=== PATIENT | male | born 1955 ===

== ENCOUNTER 2017-11-19 14:35 | Observation (INO) | payer MEDICARE ==
[2017-11-19] MEDS ORDERED: Dextrose 50% SYRINGE Inj (50 ml) ONE (14:39)
[2017-11-19] MEDS ORDERED: Dextrose 50% SYRINGE Inj (50 ml) IVP ONE ×2 (14:40)
[2017-11-19] MEDS ORDERED: Glucagon Recombinant 1 mg Inj ONE ×2 (14:40→17:22)
[2017-11-19 15:30] LABS: BASO % 0.5 % (0.0-2.0); EOS # 0.3 K/uL (0.0-0.7); HEMOGLOBIN 10.1 g/dL (12.0-18.0); LYMPH # 0.5 K/uL (1.0-4.3); LYMPH % 5.3 % (20.0-40.0); MEAN CELL VOLUME 92.2 fl (80.0-94.0); MEAN CORPUSCULAR HEMOGLOBIN 31.4 pg (27.0-31.0); MEAN PLATELET VOLUME 7.7 fl (7.2-11.7); MONO # 0.5 K/uL (0.0-0.8); MONO % 5.5 % (0.0-10.0); NEUT % 85.7 % (50.0-75.0); PLATELET COUNT 224 K/uL (130-400); RBC 3.22 Mil/uL (4.40-5.90); RED CELL DISTRIBUTION WIDTH 13.5 % (11.5-14.5); WHITE BLOOD COUNT 9.4 K/uL (4.8-10.8)
[2017-11-19 15:32] LABS: VENOUS BLOOD GAS PCO2 45 mmHg (40-60); VENOUS BLOOD GAS PO2 34 mm/Hg (30-55); VENOUS BLOOD PH 7.29 (7.32-7.43)
--- NOTE | 2017-11-19 15:50 | ED PDOC ---
HPI: Altered Mental Status Time Seen by Provider: 11/19/17 14:37 Chief Complaint (Nursing): Altered Mental Status Chief Complaint (Provider): Hypoglycemia History Per: EMS History/Exam Limitations: Clinical Condition Onset/Duration Of Symptoms: Unknown Onset Of Symptoms: Cannot Confirm Onset Additional Complaint(s): 61yo male, brought to ER by EMS for evaluation of altered mental status and possible seizure. Per EMS, patient was found altered on field and per their report, EMS was called by the patient's neighbor who reportedly witnessed a seizure and that the patient was post-ictal. Patient did not have an accucheck in the field and in ER, accucheck noted to be 20. A full HPI and ROS is limited due to patient's clinical condition. Past Medical History Reviewed: Historical Data, Nursing Documentation, Vital Signs Vital Signs: Last Vital Signs Temp 97.9 F 11/19/17 14:45 Pulse 74 11/19/17 15:07 Resp 17 11/19/17 15:07 BP 142/74 11/19/17 15:07 Pulse Ox 100 11/19/17 15:07 - Medical History PMH: Diabetes, HTN, Seizures - Surgical History Surgical History: No Surg Hx - Family History Family History: States: No Known Family Hx - Home Medications Home Medications: Ambulatory Orders Medication Instructions Recorded Aspirin [Ecotrin] 81 mg PO DAILY #30 tabec 11/20/17 Atorvastatin [Lipitor] 10 mg PO HS #30 tab 11/20/17 Carvedilol [Coreg] 25 mg PO Q12 #30 tab 11/20/17 Finasteride [Proscar] 5 mg PO DAILY #30 tab 11/20/17 Furosemide [Lasix] 20 mg PO DAILY #30 tab 11/20/17 Sodium Bicarbonate Tab 1,300 mg PO BID #120 tab 11/20/17 Tamsulosin [Flomax] 0.4 mg PO HS #30 cap 11/20/17 amLODIPine [Norvasc] 10 mg PO DAILY #30 tab 11/20/17 - Allergies Allergies/Adverse Reactions: Allergies Allergy/AdvReac Type Severity Reaction Status Date / Time Unobtainable Allergy Verified 11/19/17 14:37 Review of Systems Review Of Systems: ROS cannot be obtained secondary to pt's inabilty to answer questions. Physical Exam - Reviewed Nursing Documentation Reviewed: Yes - Physical Exam Appears: Positive for: No Acute Distress Head Exam: Positive for: ATRAUMATIC, NORMAL INSPECTION, NORMOCEPHALIC Skin: Positive for: Diaphoresis Eye Exam: Positive for: PERRL Neck: Positive for: Normal, Supple Cardiovascular/Chest: Positive for: Regular Rate, Rhythm, Bradycardia Respiratory: Positive for: Normal Breath Sounds. Negative for: Respiratory Distress Pulses-Dorsalis Pedis (L): 2+ Pulses-Dorsalis Pedis (R): 2+ Pulses-Radial (L): 2+ Pulses-Radial (R): 2+ Gastrointestinal/Abdominal: Positive for: Normal Exam, Soft, Other (obese abdomen). Negative for: Tenderness Back: Positive for: Normal Inspection Extremity: Positive for: Normal ROM Neurologic/Psych: Positive for: Other (obtunded; snoring). Negative for: Alert , Oriented - Laboratory Results Result Diagrams: 11/19/17 15:23 11/19/17 15:23 - ECG O2 Sat by Pulse Oximetry: 100 (RA) Pulse Ox Interpretation: Normal - Progress Re-evaluation Time: 16:30 Condition: Re-examined, Improving,but remains with symptoms - Critical Care Total Time (In Min): 30 Medical Decision Making Medical Decision Making: Impression: Hypoglycemic with seizures Differential: Hypoglycemia due to diabetes medication, other etiology considered. Seizure due to recurrent seizure. Plan: * Labs * UDip * IV Dextrose 50ml * CT head * Patient's pharmaceutical records reviewed, patient is currently on glimepiride Scribe Attestation: Documented by Paula Ling, acting as a scribe for Lacho Sheehan MD. Provider Scribe Attestation: All medical record entries made by the Scribe were at my direction and personally dictated by me. I have reviewed the chart and agree that the record accurately reflects my personal performance of the history, physical exam, medical decision making, and the department course for this patient. I have also personally directed, reviewed, and agree with the discharge instructions and disposition. Disposition - Clinical Impression Clinical Impression: Altered mental status, Hypoglycemia, Seizure - Patient ED Disposition Is Patient to be Admitted: Yes Discussed With : Dorian Molina Doctor Will See Patient In The: ED Counseled Patient/Family Regarding: Studies Performed, Diagnosis - Disposition Disposition Time: 17:00 Condition: FAIR - Pt Status Changed To: Hospital Disposition Of: Observation - POA Present On Arrival: None
[2017-11-19 15:51] LABS: ALB/GLOB RATIO 1.2 (1.0-2.1); ALT/SGPT 18 U/L (21-72); AST/SGOT 15 U/L (17-59); BLOOD UREA NITROGEN 51 mg/dl (9-20); CALCIUM 8.6 mg/dL (8.4-10.2); GFR NON-AFRICAN AMERICAN 13
[2017-11-19] MEDS ORDERED: Sodium Chloride 0.9% 1,000 ML IV STA (16:13)
[2017-11-19] MEDS ORDERED: Glucagon Recombinant 1 mg Inj IM ONE (17:13)
[2017-11-19 17:14] LABS: ANISOCYTOSIS MODERATE; BANDS 2 % (0-2); EOSINOPHIL 3 % (0-7); HYPERSEGMENTATION PRESENT; LYMPHOCYTE 8 % (20-50); MONOCYTE 6 % (0-10); NEUTROPHIL 81 % (42-75); PLATELET ESTIMATE NORMAL (NORMAL); TOTAL CELLS COUNTED 100
[2017-11-19] MEDS ORDERED: Dextrose 5%/0.45% NS 1,000 ML IV SCH ×2 (17:30→17:55)
--- NOTE | 2017-11-19 17:42 | CP.PCM.HP ---
<Anastacia Bernard - Last Filed: 11/19/17 18:16> History of Present Illness - History of Present Illness History of Present Illness: 61-year-old male with hx of CHF, HTN, CKD (end-stage, refusing dialysis), and DM seen bedside in the ED. His found him unresponsive at home and he was brought in by ambulance. Blood glucose upon arrival was 20mg/dl and he received 2 Ampsof D50 (50g); no glucose check was done in the field as cruller maker thought he was having a seizure. Status-post 2 vials of D5W he was able to be aroused and returned to baseline (baseline as per ED physician who is familiar with the patient). His blood glucose rechecks were 200g/dl and 80g/dl. He admits to being off of his medication for 2 weeks and not consuming any food for the last two days as he was not feeling well. He denies tingling, numbness, headache, dizziness, chest pain, shortness of breath, constipation and diarrhea. Patient is a poor historian and difficult to understand, likely secondary to CVA x3 (first in 1979). He is alert and oriented to self and time, but not place. PMD: Dr Hargrove PMH: CHF diastolic dysfunction; (ECHO 10/2017 EF 55-60%, mild/moderate concentric LV hypertrophy, LA is moderate to severely dilated ); CVA (x3) first 1979; DM II; HTN, Kidney Stones, CKD (end-stage, refusing dialysis); A Fib PSH: No surgery noted in records SH: former Smoker quit 25 years ago; No illegal substance use; Uses a walker to ambulate; Admits to alcohol consumption of beer, 1 pack (6 servings of beer)/ day - last alcohol consumption was 3 weeks ago FH: Unknown family Hx Allergy: NKDA Present on Admission - Present on Admission Any Indicators Present on Admission: No History of DVT/PE: No History of Uncontrolled Diabetes: Yes Urinary Catheter: No Decubitus Ulcer Present: No Review of Systems - Review of Systems All systems: reviewed and no additional remarkable complaints except (as per HPI ) Past Patient History - Past Social History Smoking Status: Never Smoked - CARDIAC Hx Hypertension: Yes - NEUROLOGICAL Hx Seizures: Yes - PSYCHIATRIC Hx Substance Use: No - SURGICAL HISTORY Hx Surgeries: No - ANESTHESIA Hx Anesthesia: No Meds Allergies/Adverse Reactions: Allergies Allergy/AdvReac Type Severity Reaction Status Date / Time Unobtainable Allergy Verified 11/19/17 14:37 Physical Exam - Constitutional Appears: Non-toxic - Head Exam Head Exam: ATRAUMATIC - Eye Exam Eye Exam: PERRL - ENT Exam ENT Exam: Mucous Membranes Dry - Neck Exam Neck exam: Positive for: Full Rom - Respiratory Exam Respiratory Exam: NORMAL BREATHING PATTERN - Cardiovascular Exam Cardiovascular Exam: REGULAR RHYTHM - Extremities Exam Additional comments: +1 pitting edema bilateral - Neurological Exam Neurological exam: Alert Additional comments: Oriented to time and self Results - Vital Signs Recent Vital Signs: Last Vital Signs Temp 97.9 F 11/19/17 14:45 Pulse 74 11/19/17 15:07 Resp 17 11/19/17 15:07 BP 142/74 11/19/17 15:07 Pulse Ox 100 11/19/17 15:55 - Labs Result Diagrams: 11/19/17 15:23 11/19/17 15:23 Labs: Laboratory Results - last 24 hr 11/19/17 11/19/17 11/19/17 14:31 15:06 15:23 WBC RBC Hgb Hct MCV MCH MCHC RDW Plt Count MPV Neut % (Auto) Lymph % (Auto) [place] % (Auto) Eos % (Auto) Baso % (Auto) Neut # (Auto) Lymph # (Auto) [place] # (Auto) Eos # (Auto) Baso # (Auto) Neutrophils % (Manual) Band Neutrophils % Lymphocytes % (Manual) Monocytes % (Manual) Eosinophils % (Manual) Hypersegmented Polys Platelet Estimate Anisocytosis (manual) Macrocytosis (manual) pO2 VBG pH VBG pCO2 VBG HCO3 VBG Total CO2 VBG O2 Sat (Calc) VBG Base Excess VBG Potassium Glucose Lactate FiO2 Sodium 139 Potassium 3.3 L Chloride 105 Carbon Dioxide 23 Anion Gap 14 BUN 51 H Creatinine 4.7 H Est GFR ( Amer) 15 Est GFR (Non-Af Amer) 13 POC Glucose (mg/dL) < 20 L* 197 H Random Glucose 232 H Calcium 8.6 Total Bilirubin 0.4 AST 15 L ALT 18 L Alkaline Phosphatase 91 Ammonia Total Protein 7.2 Albumin 4.0 Globulin 3.3 Albumin/Globulin Ratio 1.2 Venous Blood Potassium Alcohol, Quantitative < 10 11/19/17 11/19/17 11/19/17 15:23 15:23 15:29 WBC 9.4 RBC 3.22 L Hgb 10.1 L Hct 29.7 L MCV 92.2 MCH 31.4 H MCHC 34.0 RDW 13.5 Plt Count 224 MPV 7.7 Neut % (Auto) 85.7 H Lymph % (Auto) 5.3 L [place] % (Auto) 5.5 Eos % (Auto) 3.0 Baso % (Auto) 0.5 Neut # (Auto) 8.0 H Lymph # (Auto) 0.5 L [place] # (Auto) 0.5 Eos # (Auto) 0.3 Baso # (Auto) 0.0 Neutrophils % (Manual) 81 H Band Neutrophils % 2 Lymphocytes % (Manual) 8 L Monocytes % (Manual) 6 Eosinophils % (Manual) 3 Hypersegmented Polys Present Platelet Estimate Normal Anisocytosis (manual) Moderate Macrocytosis (manual) Slight pO2 34 VBG pH 7.29 L VBG pCO2 45 VBG HCO3 19.9 VBG Total CO2 23.0 VBG O2 Sat (Calc) 71.0 H VBG Base Excess -5.0 L VBG Potassium 3.0 L Glucose 213 H Lactate 0.7 FiO2 21.0 Sodium 135.0 Potassium Chloride 103.0 Carbon Dioxide Anion Gap BUN Creatinine Est GFR ( Amer) Est GFR (Non-Af Amer) POC Glucose (mg/dL) Random Glucose Calcium Total Bilirubin AST ALT Alkaline Phosphatase Ammonia 11 L Total Protein Albumin Globulin Albumin/Globulin Ratio Venous Blood Potassium 3.0 L Alcohol, Quantitative 11/19/17 17:13 WBC RBC Hgb Hct MCV MCH MCHC RDW Plt Count MPV Neut % (Auto) Lymph % (Auto) [place] % (Auto) Eos % (Auto) Baso % (Auto) Neut # (Auto) Lymph # (Auto) [place] # (Auto) Eos # (Auto) Baso # (Auto) Neutrophils % (Manual) Band Neutrophils % Lymphocytes % (Manual) Monocytes % (Manual) Eosinophils % (Manual) Hypersegmented Polys Platelet Estimate Anisocytosis (manual) Macrocytosis (manual) pO2 VBG pH VBG pCO2 VBG HCO3 VBG Total CO2 VBG O2 Sat (Calc) VBG Base Excess VBG Potassium Glucose Lactate FiO2 Sodium Potassium Chloride Carbon Dioxide Anion Gap BUN Creatinine Est GFR ( Amer) Est GFR (Non-Af Amer) POC Glucose (mg/dL) 84 Random Glucose Calcium Total Bilirubin AST ALT Alkaline Phosphatase Ammonia Total Protein Albumin Globulin Albumin/Globulin Ratio Venous Blood Potassium Alcohol, Quantitative Assessment & Plan - Assessment and Plan (Free Text) Assessment: Syncope -Likely secondary to hypoglycemia (Accucheck 20) -Admit to Tele -IVF: D5 0.5 NS + 20 meq K -CT w/out contrast Hypoglycemia -Accucheck Q4H (20 n@ arrival, 200, 80) -Hold Lispro unless glucose greater than 300 -Consult endocrinology Dr. Camarean Diabetes Type II -Patient off meds 2 weeks, poor historian CKD -End-stage, patient refuse Dialysis in the past -Consult nephrology -Gentle IV fluid re-hydration Hypokalemia -Likely secondary to poor intake -To be replaced (IVF) -Follow electrolytes DVT Prophylaxis -Heparin 5000 units Q8 <Dorian Molina D - Last Filed: 11/20/17 09:44> Results - Vital Signs Recent Vital Signs: Last Vital Signs Temp 98 F 11/20/17 08:14 Pulse 62 11/20/17 08:56 Resp 20 11/20/17 08:14 BP 164/78 H 11/20/17 08:56 Pulse Ox 98 11/20/17 08:14 - Labs Result Diagrams: 11/19/17 15:23 11/19/17 15:23 Labs: Laboratory Results - last 24 hr 11/19/17 11/19/17 11/19/17 14:31 15:06 15:23 WBC RBC Hgb Hct MCV MCH MCHC RDW Plt Count MPV Neut % (Auto) Lymph % (Auto) [place] % (Auto) Eos % (Auto) Baso % (Auto) Neut # (Auto) Lymph # (Auto) [place] # (Auto) Eos # (Auto) Baso # (Auto) Neutrophils % (Manual) Band Neutrophils % Lymphocytes % (Manual) Monocytes % (Manual) Eosinophils % (Manual) Hypersegmented Polys Platelet Estimate Anisocytosis (manual) Macrocytosis (manual) pO2 VBG pH VBG pCO2 VBG HCO3 VBG Total CO2 VBG O2 Sat (Calc) VBG Base Excess VBG Potassium Glucose Lactate FiO2 Sodium 139 Potassium 3.3 L Chloride 105 Carbon Dioxide 23 Anion Gap 14 BUN 51 H Creatinine 4.7 H Est GFR ( Amer) 15 Est GFR (Non-Af Amer) 13 POC Glucose (mg/dL) < 20 L* 197 H Random Glucose 232 H Calcium 8.6 Total Bilirubin 0.4 AST 15 L ALT 18 L Alkaline Phosphatase 91 Ammonia Troponin I Total Protein 7.2 Albumin 4.0 Globulin 3.3 Albumin/Globulin Ratio 1.2 Venous Blood Potassium Urine Opiates Screen Urine Methadone Screen Ur Barbiturates Screen Ur Phencyclidine Scrn Ur Amphetamines Screen U Benzodiazepines Scrn U Oth Cocaine Metabols U Cannabinoids Screen Alcohol, Quantitative < 10 11/19/17 11/19/17 11/19/17 15:23 15:23 15:29 WBC 9.4 RBC 3.22 L Hgb 10.1 L Hct 29.7 L MCV 92.2 MCH 31.4 H MCHC 34.0 RDW 13.5 Plt Count 224 MPV 7.7 Neut % (Auto) 85.7 H Lymph % (Auto) 5.3 L [place] % (Auto) 5.5 Eos % (Auto) 3.0 Baso % (Auto) 0.5 Neut # (Auto) 8.0 H Lymph # (Auto) 0.5 L [place] # (Auto) 0.5 Eos # (Auto) 0.3 Baso # (Auto) 0.0 Neutrophils % (Manual) 81 H Band Neutrophils % 2 Lymphocytes % (Manual) 8 L Monocytes % (Manual) 6 Eosinophils % (Manual) 3 Hypersegmented Polys Present Platelet Estimate Normal Anisocytosis (manual) Moderate Macrocytosis (manual) Slight pO2 34 VBG pH 7.29 L VBG pCO2 45 VBG HCO3 19.9 VBG Total CO2 23.0 VBG O2 Sat (Calc) 71.0 H VBG Base Excess -5.0 L VBG Potassium 3.0 L Glucose 213 H Lactate 0.7 FiO2 21.0 Sodium 135.0 Potassium Chloride 103.0 Carbon Dioxide Anion Gap BUN Creatinine Est GFR ( Amer) Est GFR (Non-Af Amer) POC Glucose (mg/dL) Random Glucose Calcium Total Bilirubin AST ALT Alkaline Phosphatase Ammonia 11 L Troponin I Total Protein Albumin Globulin Albumin/Globulin Ratio Venous Blood Potassium 3.0 L Urine Opiates Screen Urine Methadone Screen Ur Barbiturates Screen Ur Phencyclidine Scrn Ur Amphetamines Screen U Benzodiazepines Scrn U Oth Cocaine Metabols U Cannabinoids Screen Alcohol, Quantitative 11/19/17 11/19/17 11/19/17 17:13 20:00 20:05 WBC RBC Hgb Hct MCV MCH MCHC RDW Plt Count MPV Neut % (Auto) Lymph % (Auto) [place] % (Auto) Eos % (Auto) Baso % (Auto) Neut # (Auto) Lymph # (Auto) [place] # (Auto) Eos # (Auto) Baso # (Auto) Neutrophils % (Manual) Band Neutrophils % Lymphocytes % (Manual) Monocytes % (Manual) Eosinophils % (Manual) Hypersegmented Polys Platelet Estimate Anisocytosis (manual) Macrocytosis (manual) pO2 VBG pH VBG pCO2 VBG HCO3 VBG Total CO2 VBG O2 Sat (Calc) VBG Base Excess VBG Potassium Glucose Lactate FiO2 Sodium Potassium Chloride Carbon Dioxide Anion Gap BUN Creatinine Est GFR ( Amer) Est GFR (Non-Af Amer) POC Glucose (mg/dL) 84 96 Random Glucose Calcium Total Bilirubin AST ALT Alkaline Phosphatase Ammonia Troponin I 0.0360 Total Protein Albumin Globulin Albumin/Globulin Ratio Venous Blood Potassium Urine Opiates Screen Urine Methadone Screen Ur Barbiturates Screen Ur Phencyclidine Scrn Ur Amphetamines Screen U Benzodiazepines Scrn U Oth Cocaine Metabols U Cannabinoids Screen Alcohol, Quantitative 11/19/17 11/20/17 11/20/17 20:47 03:15 04:40 WBC RBC Hgb Hct MCV MCH MCHC RDW Plt Count MPV Neut % (Auto) Lymph % (Auto) [place] % (Auto) Eos % (Auto) Baso % (Auto) Neut # (Auto) Lymph # (Auto) [place] # (Auto) Eos # (Auto) Baso # (Auto) Neutrophils % (Manual) Band Neutrophils % Lymphocytes % (Manual) Monocytes % (Manual) Eosinophils % (Manual) Hypersegmented Polys Platelet Estimate Anisocytosis (manual) Macrocytosis (manual) pO2 VBG pH VBG pCO2 VBG HCO3 VBG Total CO2 VBG O2 Sat (Calc) VBG Base Excess VBG Potassium Glucose Lactate FiO2 Sodium Potassium Chloride Carbon Dioxide Anion Gap BUN Creatinine Est GFR ( Amer) Est GFR (Non-Af Amer) POC Glucose (mg/dL) 96 65 Random Glucose Calcium Total Bilirubin AST ALT Alkaline Phosphatase Ammonia Troponin I Total Protein Albumin Globulin Albumin/Globulin Ratio Venous Blood Potassium Urine Opiates Screen Negative Urine Methadone Screen Negative Ur Barbiturates Screen Negative Ur Phencyclidine Scrn Negative Ur Amphetamines Screen Negative U Benzodiazepines Scrn Negative U Oth Cocaine Metabols Negative U Cannabinoids Screen Negative Alcohol, Quantitative 11/20/17 05:18 WBC RBC Hgb Hct MCV MCH MCHC RDW Plt Count MPV Neut % (Auto) Lymph % (Auto) [place] % (Auto) Eos % (Auto) Baso % (Auto) Neut # (Auto) Lymph # (Auto) [place] # (Auto) Eos # (Auto) Baso # (Auto) Neutrophils % (Manual) Band Neutrophils % Lymphocytes % (Manual) Monocytes % (Manual) Eosinophils % (Manual) Hypersegmented Polys Platelet Estimate Anisocytosis (manual) Macrocytosis (manual) pO2 VBG pH VBG pCO2 VBG HCO3 VBG Total CO2 VBG O2 Sat (Calc) VBG Base Excess VBG Potassium Glucose Lactate FiO2 Sodium Potassium Chloride Carbon Dioxide Anion Gap BUN Creatinine Est GFR ( Amer) Est GFR (Non-Af Amer) POC Glucose (mg/dL) 122 H Random Glucose Calcium Total Bilirubin AST ALT Alkaline Phosphatase Ammonia Troponin I Total Protein Albumin Globulin Albumin/Globulin Ratio Venous Blood Potassium Urine Opiates Screen Urine Methadone Screen Ur Barbiturates Screen Ur Phencyclidine Scrn Ur Amphetamines Screen U Benzodiazepines Scrn U Oth Cocaine Metabols U Cannabinoids Screen Alcohol, Quantitative Attending/Attestation - Attestation I have personally seen and examined this patient.: Yes I have fully participated in the care of the patient.: Yes I have reviewed all pertinent clinical information: Yes
[2017-11-19] MEDS ORDERED: Dextrose 50% SYRINGE Inj (50 ml) IV PRN (17:51)
[2017-11-19] MEDS ORDERED: Glucagon Recombinant 1 mg Inj IM PRN (17:51)
--- NOTE | 2017-11-19 18:22 | CT ---
Date of service: 11/19/2017 PROCEDURE: CT HEAD WITHOUT CONTRAST. HISTORY: AMS COMPARISON: None available. TECHNIQUE: Axial computed tomography images were obtained through the head/brain without intravenous contrast. Coronal and sagittal reconstructed images. Radiation dose: Total exam DLP = 1013.95 mGy-cm. This CT exam was performed using one or more of the following dose reduction techniques: Automated exposure control, adjustment of the mA and/or kV according to patient size, and/or use of iterative reconstruction technique. FINDINGS: HEMORRHAGE: No intracranial hemorrhage. BRAIN: No mass effect or edema. Evidence of cortical atrophy and microvascular disease. Evidence of encephalomalacia change left frontal parietal region. VENTRICLES: Unremarkable. No hydrocephalus. CALVARIUM: Unremarkable. PARANASAL SINUSES: Unremarkable as visualized. No significant inflammatory changes. MASTOID AIR CELLS: Unremarkable as visualized. No inflammatory changes. OTHER FINDINGS: Evidence of old nasal bone fractures. Scalp laceration or scar left frontal region without adjacent calvarial or underlying intracranial abnormality. IMPRESSION: No acute intracranial abnormalities. No significant findings to account for the clinical presentation. Additional benign and/or incidental findings described above.
[2017-11-19] MEDS: Potassium Ch 20mEq in D5-1/2NS 1,000 ML IV SCH (20:56)
[2017-11-19] MEDS ORDERED: Insulin Lispro (humaLOG) 100 Units/ml Inj SC SCH (22:00)
[2017-11-19] MEDS: Insulin Lispro (humaLOG) 100 Units/ml Inj SC SCH (22:17)
[2017-11-20 04:45] LABS: BARBITURATES, UR NEGATIVE (NEGATIVE); BENZODIAZEPINES, UR NEGATIVE (NEGATIVE); OPIATES, UR NEGATIVE (NEGATIVE); PHENCYCLIDINE, UR NEGATIVE (NEGATIVE)
[2017-11-20] MEDS: Insulin Lispro (humaLOG) 100 Units/ml Inj SC SCH ×2 (06:39→15:05)
[2017-11-20] MEDS: Potassium Ch 20mEq in D5-1/2NS 1,000 ML IV SCH (06:40)
--- NOTE | 2017-11-20 07:47 | CARD ---
APPROVED REPORT Date of service: 11/19/2017 EKG Measurement Heart [id number] <Conclusion> Normal sinus rhythm Left ventricular hypertrophy with QRS widening and repolarization abnormality Abnormal ECG
[2017-11-20] MEDS ORDERED: Insulin Lispro (humaLOG) 100 Units/ml Inj SC SCH (09:00)
--- NOTE | 2017-11-20 09:53 | CON ---
DATE: 11/19/2017 LOCATION: Room 408 SUBJECTIVE: This is a 61-year-old male with known history of type 2 diabetes and end-stage renal disease, presenting here with sudden onset of confusion and apparent weakness, seizure, with an initial glucose of less than 20 done on arrival in the emergency room and is now being referred for diabetic evaluation and management. PAST MEDICAL HISTORY: As mentioned above, history of type 2 diabetes, currently on Amaryl given as 2 mg once daily, history of hypertensive cardiovascular disease and dyslipidemia, history of diabetic retinopathy, polyneuropathy, and advanced nephropathy with end-stage renal disease, but apparently has been refusing hemodialysis at this time. History of coronary artery disease and previous admissions for congestive heart failure. History of cerebrovascular disease, having had three previous strokes before with residual lower extremity weakness and uses a cane for ambulation. History of nephrolithiasis with no recent stone passage. History of cardiac tachyarrhythmias and chronic atrial fibrillation and is not on any kind of oral anticoagulation therapy at this time. FAMILY HISTORY: Positive for diabetes, hypertension. SOCIAL HISTORY: The patient admits to chronic alcoholism and consumes a pack of beer every few days as per the family. He is a previous former smoker and quit over 20 years ago. REVIEW OF SYSTEMS: As mentioned above, admits to generalized body weakness with progressive bouts of dizziness and lightheadedness, worse on the day of admission with apparent witnessed generalized seizures as noted. Also admits to insomnia and disrupted sleep patterns. Also admits to generalized body weakness with increasing bouts of hypersomnolence and lethargy, worse in the last few weeks prior to admission as per the family. No chest pains or palpitations or PND, but has been shown to have progressive shortness of breath initially on exertion and then at rest. His oral intake has been extremely poor and variable with suboptimal meal portions in the last 2 weeks and has been taking his Amaryl medications as noted with no recent home glucose monitoring undertaken. Also admits to nausea, dyspepsia, and vague upper abdominal pains with habitual constipation. PHYSICAL EXAMINATION: GENERAL: This is an obese male in no apparent distress. VITAL SIGNS: With a blood pressure of 150/84, pulse of 100 beats per minute and regular, temperature 98, respirations 20, height is 5 feet 4 inches, weight is 250 pounds. HEENT: Head normocephalic. Eyes, anicteric with pale conjunctivae. Funduscopy not possible at this time. Ears, nose, and throat otherwise normal. NECK: Supple. Thyroid gland is normal in size. No carotid bruits or any cervical adenopathy. CARDIOPULMONARY: Some adynamic precordium. S1, S2 are rapid and regular. LUNGS: Clear to auscultation. ABDOMEN: Flat, soft with positive bowel sounds. EXTREMITIES: There is +1 bipedal edema. Pulses are diminished peripherally. LABORATORY DATA: His initial chemistries showed a BUN of 51, sodium 139, potassium 3.3, chloride 105, CO2 of 23, glucose 232, and creatinine is 4.7. This was done after D50 bolus injections given initially in the emergency room with an initial fingerstick glucose of less than 20 mg/dL. ASSESSMENT: This is a 61-year-old male with uncontrolled and decompensated type 2 diabetes, presenting here with symptomatic hypoglycemia and associated neuroglycopenic and hyperadrenergic manifestations of the same with an apparent witnessed seizure which could also be metabolic in nature from the underlying marked hypoglycemia as mentioned thereof. He also has diabetic microvascular complications of retinopathy, polyneuropathy, and advanced nephropathy with marked azotemia and end-stage renal disease and has been refusing dialysis at this time. He also has diabetic macrovascular complications of cerebrovascular disease with coronary artery disease and most likely also has peripheral arterial disease and vasculopathy. PLAN OF MANAGEMENT: We will concur with the low-dose coverage scale as ordered, but we will still modify the low-dose correction scale for Humalog insulin to be given only for glucose above 300 mg/dL. We will observe his glycemic fluctuations overnight and determine the need to restart him on very low-dose, short-acting oral hypoglycemic therapy such as Prandin, especially beneficial in patients with end-stage renal disease because of the very short half life of this medication. We will obtain a hemoglobin A1c to confirm his prior glycemic control and baseline thyroid function studies will be ordered. A PTH level will be obtained to screen for secondary hyperparathyroidism as noted. We will repeat the chemistries and supplement accordingly as needed. We will follow. Kylah Camarena MD
--- NOTE | 2017-11-20 10:10 | PQF ---
PROVIDER RESPONSE TEXT: Patient is morbidly obese since his BMI is over 40 REVIEWER QUERY TEXT: Documentation Clarification Your help is requested in clarifying the following clinical documentation, if you can please further specify in the medical record and discharge summary. Please clarify if there is an associated diagnosis or not to go along with the BMI listed in the EMR. Please document the BMI as well in your progress note. The patient's Clinical Indicators include: EMR has the following documentation: 5' 4", 250 pounds with a BMI of 42.9. Query created by: Hyun Mederos on 11/20/2017 8:09 AM Electronically signed by: Dorian Molina MD 11/20/2017 10:07 AM
--- NOTE | 2017-11-20 10:20 | CP.PCM.CON ---
History of Present Illness - History of Present Illness History of Present Illness: this patient whole is 61 years of age male was admitted with severe hypoglycemia. And patient have chronic kidney disease for which I was called to see him for further evaluation. Patient stated that he has no knowledge of chronic kidney disease or any kidney problem to the best of his knowledge yet he is very poor historian Patient apparently has history of chronic kidney disease and he was a Saad for dialysis and he has refused. PMD: Dr Hargrove PMH: CHF diastolic dysfunction; (ECHO 10/2017 EF 55-60%, mild/moderate concentric LV hypertrophy, LA is moderate to severely dilated ); CVA (x3) first 1979; DM II; HTN, Kidney Stones, CKD (end-stage, refusing dialysis); A Fib PSH: No surgery noted in records SH: former Smoker quit 25 years ago; No illegal substance use; Uses a walker to ambulate; Admits to alcohol consumption of beer, 1 pack (6 servings of beer)/ day - last alcohol consumption was 3 weeks ago FH: Unknown family Hx Review of Systems - Constitutional Constitutional: Anorexia. absent: Chills - EENT Eyes: As Per HPI Nose/Mouth/Throat: absent: Nasal Congestion, Nasal Discharge - Cardiovascular Cardiovascular: absent: Chest Pain, Edema - Respiratory Respiratory: absent: Cough, Dyspnea, Hemoptysis - Gastrointestinal Gastrointestinal: absent: Abdominal Pain, Coffee Ground Emesis - Genitourinary Genitourinary: Nocturia - Musculoskeletal Musculoskeletal: absent: Abnormal Gait, Back Pain - Neurological Neurological: Confusion. absent: Dizziness, Focal Weakness - Endocrine Endocrine: Fatigue - Hematologic/Lymphatic Hematologic: absent: Easy Bleeding Past Patient History - Past Social History Smoking Status: Former Smoker - CARDIAC Hx Cardiac Disorders: Yes (HTN) Hx Atrial Fibrillation: Yes Hx Congestive Heart Failure: Yes Hx Hypertension: Yes - PULMONARY Hx Respiratory Disorders: No - NEUROLOGICAL Hx Neurological Disorder: Yes (SEIZURE) HX Cerebrovascular Accident: Yes Hx Seizures: Yes - HEENT Hx HEENT Problems: No - RENAL Hx Chronic Kidney Disease: Yes - ENDOCRINE/METABOLIC Hx Endocrine Disorders: Yes (DM) Hx Diabetes Mellitus Type 2: Yes - HEMATOLOGICAL/ONCOLOGICAL Hx Blood Disorders: No Hx AIDS: No Hx Human Immunodeficiency Virus (HIV): No - INTEGUMENTARY Hx Dermatological Problems: No - MUSCULOSKELETAL/RHEUMATOLOGICAL Hx Musculoskeletal Disorders: No Hx Falls: No - GASTROINTESTINAL Hx Gastrointestinal Disorders: No - GENITOURINARY/GYNECOLOGICAL Hx Genitourinary Disorders: No - PSYCHIATRIC Hx Psychophysiologic Disorder: No Hx Substance Use: No - SURGICAL HISTORY Hx Surgeries: No - ANESTHESIA Hx Anesthesia: No Meds Allergies/Adverse Reactions: Allergies Allergy/AdvReac Type Severity Reaction Status Date / Time Unobtainable Allergy Verified 11/19/17 14:37 - Medications Medications: Current Medications Amlodipine Besylate (Norvasc) 10 mg PO DAILY [facility] Last Admin: 11/20/17 08:56 Dose: 10 mg Aspirin (Ecotrin) 81 mg PO DAILY [facility] Last Admin: 11/20/17 08:55 Dose: 81 mg Atorvastatin Calcium (Lipitor) 10 mg PO HS [facility] Last Admin: 11/19/17 20:59 Dose: 10 mg Carvedilol (Coreg) 25 mg PO Q12 [facility] Last Admin: 11/20/17 08:54 Dose: 25 mg Dextrose (Dextrose 50% Inj) 0 ml IV STAT PRN; Protocol PRN Reason: Hypoglycemia Protocol Dextrose (Glutose 15) 0 gm PO ONCE PRN; Protocol PRN Reason: Hypoglycemia Protocol Finasteride (Proscar) 5 mg PO DAILY [facility] Last Admin: 11/20/17 08:56 Dose: 5 mg Furosemide (Lasix) 20 mg PO DAILY [facility] Last Admin: 11/20/17 08:56 Dose: 20 mg Glucagon (Glucagen Diagnostic Kit) 0 mg IM STAT PRN; Protocol PRN Reason: Hypoglycemia Protocol Heparin Sodium (Porcine) (Heparin) 5,000 units SC Q8 IVY PRN Reason: Protocol Last Admin: 11/20/17 08:59 Dose: Not Given Potassium Chloride/Dextrose/Sod Cl (Potassium Chl 20 Meq In D5-1/2ns) 1,000 mls @ 80 mls/hr IV .[id number] [facility] Last Admin: 11/20/17 06:40 Dose: Not Given Insulin Human Lispro (Humalog) 0 units SC ACHS [facility] PRN Reason: Protocol Last Admin: 11/20/17 06:39 Dose: Not Given Sodium Bicarbonate (Sodium Bicarbonate Tab) 1,300 mg PO BID [facility] Last Admin: 11/20/17 08:56 Dose: 1,300 mg Tamsulosin HCl (Flomax) 0.4 mg PO HS [facility] Last Admin: 11/19/17 20:59 Dose: 0.4 mg Physical Exam - Constitutional Appears: No Acute Distress - Eye Exam Eye Exam: Conjunctival injection - ENT Exam ENT Exam: Mucous Membranes Moist - Neck Exam Neck exam: Negative for: Lymphadenopathy - Respiratory Exam Respiratory Exam: NORMAL BREATHING PATTERN. absent: Chest Wall Tenderness - Cardiovascular Exam Cardiovascular Exam: REGULAR RHYTHM. absent: Gallop, Rubs - GI/Abdominal Exam GI & Abdominal Exam: Normal Bowel Sounds. absent: Guarding - Extremities Exam Extremities exam: Negative for: calf tenderness - Back Exam Back exam: absent: CVA tenderness (L), CVA tenderness (R) - Neurological Exam Neurological exam: Alert - Psychiatric Exam Psychiatric exam: Normal Affect Results - Vital Signs Recent Vital Signs: Last Vital Signs Temp 98 F 11/20/17 08:14 Pulse 62 11/20/17 08:56 Resp 20 11/20/17 08:14 BP 164/78 H 11/20/17 08:56 Pulse Ox 98 11/20/17 08:14 - Labs Result Diagrams: 11/19/17 15:23 11/19/17 15:23 Labs: Laboratory Results - last 24 hr 11/19/17 11/19/17 11/19/17 14:31 15:06 15:23 WBC RBC Hgb Hct MCV MCH MCHC RDW Plt Count MPV Neut % (Auto) Lymph % (Auto) [place] % (Auto) Eos % (Auto) Baso % (Auto) Neut # (Auto) Lymph # (Auto) [place] # (Auto) Eos # (Auto) Baso # (Auto) Neutrophils % (Manual) Band Neutrophils % Lymphocytes % (Manual) Monocytes % (Manual) Eosinophils % (Manual) Hypersegmented Polys Platelet Estimate Anisocytosis (manual) Macrocytosis (manual) pO2 VBG pH VBG pCO2 VBG HCO3 VBG Total CO2 VBG O2 Sat (Calc) VBG Base Excess VBG Potassium Glucose Lactate FiO2 Sodium 139 Potassium 3.3 L Chloride 105 Carbon Dioxide 23 Anion Gap 14 BUN 51 H Creatinine 4.7 H Est GFR ( Amer) 15 Est GFR (Non-Af Amer) 13 POC Glucose (mg/dL) < 20 L* 197 H Random Glucose 232 H Calcium 8.6 Total Bilirubin 0.4 AST 15 L ALT 18 L Alkaline Phosphatase 91 Ammonia Troponin I Total Protein 7.2 Albumin 4.0 Globulin 3.3 Albumin/Globulin Ratio 1.2 Venous Blood Potassium Urine Opiates Screen Urine Methadone Screen Ur Barbiturates Screen Ur Phencyclidine Scrn Ur Amphetamines Screen U Benzodiazepines Scrn U Oth Cocaine Metabols U Cannabinoids Screen Alcohol, Quantitative < 10 11/19/17 11/19/17 11/19/17 15:23 15:23 15:29 WBC 9.4 RBC 3.22 L Hgb 10.1 L Hct 29.7 L MCV 92.2 MCH 31.4 H MCHC 34.0 RDW 13.5 Plt Count 224 MPV 7.7 Neut % (Auto) 85.7 H Lymph % (Auto) 5.3 L [place] % (Auto) 5.5 Eos % (Auto) 3.0 Baso % (Auto) 0.5 Neut # (Auto) 8.0 H Lymph # (Auto) 0.5 L [place] # (Auto) 0.5 Eos # (Auto) 0.3 Baso # (Auto) 0.0 Neutrophils % (Manual) 81 H Band Neutrophils % 2 Lymphocytes % (Manual) 8 L Monocytes % (Manual) 6 Eosinophils % (Manual) 3 Hypersegmented Polys Present Platelet Estimate Normal Anisocytosis (manual) Moderate Macrocytosis (manual) Slight pO2 34 VBG pH 7.29 L VBG pCO2 45 VBG HCO3 19.9 VBG Total CO2 23.0 VBG O2 Sat (Calc) 71.0 H VBG Base Excess -5.0 L VBG Potassium 3.0 L Glucose 213 H Lactate 0.7 FiO2 21.0 Sodium 135.0 Potassium Chloride 103.0 Carbon Dioxide Anion Gap BUN Creatinine Est GFR ( Amer) Est GFR (Non-Af Amer) POC Glucose (mg/dL) Random Glucose Calcium Total Bilirubin AST ALT Alkaline Phosphatase Ammonia 11 L Troponin I Total Protein Albumin Globulin Albumin/Globulin Ratio Venous Blood Potassium 3.0 L Urine Opiates Screen Urine Methadone Screen Ur Barbiturates Screen Ur Phencyclidine Scrn Ur Amphetamines Screen U Benzodiazepines Scrn U Oth Cocaine Metabols U Cannabinoids Screen Alcohol, Quantitative 11/19/17 11/19/17 11/19/17 17:13 20:00 20:05 WBC RBC Hgb Hct MCV MCH MCHC RDW Plt Count MPV Neut % (Auto) Lymph % (Auto) [place] % (Auto) Eos % (Auto) Baso % (Auto) Neut # (Auto) Lymph # (Auto) [place] # (Auto) Eos # (Auto) Baso # (Auto) Neutrophils % (Manual) Band Neutrophils % Lymphocytes % (Manual) Monocytes % (Manual) Eosinophils % (Manual) Hypersegmented Polys Platelet Estimate Anisocytosis (manual) Macrocytosis (manual) pO2 VBG pH VBG pCO2 VBG HCO3 VBG Total CO2 VBG O2 Sat (Calc) VBG Base Excess VBG Potassium Glucose Lactate FiO2 Sodium Potassium Chloride Carbon Dioxide Anion Gap BUN Creatinine Est GFR ( Amer) Est GFR (Non-Af Amer) POC Glucose (mg/dL) 84 96 Random Glucose Calcium Total Bilirubin AST ALT Alkaline Phosphatase Ammonia Troponin I 0.0360 Total Protein Albumin Globulin Albumin/Globulin Ratio Venous Blood Potassium Urine Opiates Screen Urine Methadone Screen Ur Barbiturates Screen Ur Phencyclidine Scrn Ur Amphetamines Screen U Benzodiazepines Scrn U Oth Cocaine Metabols U Cannabinoids Screen Alcohol, Quantitative 11/19/17 11/20/17 11/20/17 20:47 03:15 04:40 WBC RBC Hgb Hct MCV MCH MCHC RDW Plt Count MPV Neut % (Auto) Lymph % (Auto) [place] % (Auto) Eos % (Auto) Baso % (Auto) Neut # (Auto) Lymph # (Auto) [place] # (Auto) Eos # (Auto) Baso # (Auto) Neutrophils % (Manual) Band Neutrophils % Lymphocytes % (Manual) Monocytes % (Manual) Eosinophils % (Manual) Hypersegmented Polys Platelet Estimate Anisocytosis (manual) Macrocytosis (manual) pO2 VBG pH VBG pCO2 VBG HCO3 VBG Total CO2 VBG O2 Sat (Calc) VBG Base Excess VBG Potassium Glucose Lactate FiO2 Sodium Potassium Chloride Carbon Dioxide Anion Gap BUN Creatinine Est GFR ( Amer) Est GFR (Non-Af Amer) POC Glucose (mg/dL) 96 65 Random Glucose Calcium Total Bilirubin AST ALT Alkaline Phosphatase Ammonia Troponin I Total Protein Albumin Globulin Albumin/Globulin Ratio Venous Blood Potassium Urine Opiates Screen Negative Urine Methadone Screen Negative Ur Barbiturates Screen Negative Ur Phencyclidine Scrn Negative Ur Amphetamines Screen Negative U Benzodiazepines Scrn Negative U Oth Cocaine Metabols Negative U Cannabinoids Screen Negative Alcohol, Quantitative 11/20/17 05:18 WBC RBC Hgb Hct MCV MCH MCHC RDW Plt Count MPV Neut % (Auto) Lymph % (Auto) [place] % (Auto) Eos % (Auto) Baso % (Auto) Neut # (Auto) Lymph # (Auto) [place] # (Auto) Eos # (Auto) Baso # (Auto) Neutrophils % (Manual) Band Neutrophils % Lymphocytes % (Manual) Monocytes % (Manual) Eosinophils % (Manual) Hypersegmented Polys Platelet Estimate Anisocytosis (manual) Macrocytosis (manual) pO2 VBG pH VBG pCO2 VBG HCO3 VBG Total CO2 VBG O2 Sat (Calc) VBG Base Excess VBG Potassium Glucose Lactate FiO2 Sodium Potassium Chloride Carbon Dioxide Anion Gap BUN Creatinine Est GFR ( Amer) Est GFR (Non-Af Amer) POC Glucose (mg/dL) 122 H Random Glucose Calcium Total Bilirubin AST ALT Alkaline Phosphatase Ammonia Troponin I Total Protein Albumin Globulin Albumin/Globulin Ratio Venous Blood Potassium Urine Opiates Screen Urine Methadone Screen Ur Barbiturates Screen Ur Phencyclidine Scrn Ur Amphetamines Screen U Benzodiazepines Scrn U Oth Cocaine Metabols U Cannabinoids Screen Alcohol, Quantitative Assessment & Plan (1) Chronic kidney disease, stage V Assessment and Plan: patient appeared to have a chronic kidney disease stage V GFR approximately 15 Most likely related to diabetic nephropathy patient has long-standing diabetes mellitus. History of hypertension History of alcohol abuse My recommendation Patient does not want to hear that he has a chronic kidney problem however the recommendation: #1 patient need venous mapping for AV fistula and to call vascular surgeon to do AV fistula #2 to get serum phosphorus and PTH level. #3 ultrasound of the kidney if is not done #5 spot urine is stat for protein to creatinine ratio and urinalysis #6 patient need follow-up for the need of dialysis as outpatient if they decide to leave and to do all of the above as outpatient which most likely he will not do Status: Acute
--- NOTE | 2017-11-20 10:45 | CP.PCM.DIS ---
<Shandra Montgomerytan - Last Filed: 11/20/17 12:42> Provider - Provider Date of Admission: 11/19/17 17:12 Attending physician: Dorian Molina MD Time Spent in preparation of Discharge (in minutes): 30 Diagnosis - Discharge Diagnosis (1) Hypoglycemia associated with type 2 diabetes mellitus Status: Resolved (2) Congestive heart failure (CHF) Status: Chronic (3) Hypertension Status: Chronic (4) Chronic kidney disease, stage V Status: Chronic Hospital Course - Lab Results Lab Results: Most Recent Lab Values WBC 9.4 K/uL (4.8-10.8) 11/19/17 15:23 RBC 3.22 Mil/uL (4.40-5.90) L 11/19/17 15:23 Hgb 10.1 g/dL (12.0-18.0) L 11/19/17 15:23 Hct 29.7 % (35.0-51.0) L 11/19/17 15:23 MCV 92.2 fl (80.0-94.0) 11/19/17 15:23 MCH 31.4 pg (27.0-31.0) H 11/19/17 15:23 MCHC 34.0 g/dL (33.0-37.0) 11/19/17 15:23 RDW 13.5 % (11.5-14.5) 11/19/17 15:23 Plt Count 224 K/uL (130-400) 11/19/17 15:23 MPV 7.7 fl (7.2-11.7) 11/19/17 15:23 Neut % (Auto) 85.7 % (50.0-75.0) H 11/19/17 15:23 Lymph % (Auto) 5.3 % (20.0-40.0) L 11/19/17 15:23 [place] % (Auto) 5.5 % (0.0-10.0) 11/19/17 15:23 Eos % (Auto) 3.0 % (0.0-4.0) 11/19/17 15:23 Baso % (Auto) 0.5 % (0.0-2.0) 11/19/17 15:23 Neut # (Auto) 8.0 K/uL (1.8-7.0) H 11/19/17 15:23 Lymph # (Auto) 0.5 K/uL (1.0-4.3) L 11/19/17 15:23 [place] # (Auto) 0.5 K/uL (0.0-0.8) 11/19/17 15:23 Eos # (Auto) 0.3 K/uL (0.0-0.7) 11/19/17 15:23 Baso # (Auto) 0.0 K/uL (0.0-0.2) 11/19/17 15:23 Neutrophils % (Manual) 81 % (42-75) H 11/19/17 15:23 Band Neutrophils % 2 % (0-2) 11/19/17 15:23 Lymphocytes % (Manual) 8 % (20-50) L 11/19/17 15:23 Monocytes % (Manual) 6 % (0-10) 11/19/17 15:23 Eosinophils % (Manual) 3 % (0-7) 11/19/17 15:23 Hypersegmented Polys Present 11/19/17 15:23 Platelet Estimate Normal (NORMAL) 11/19/17 15:23 Anisocytosis (manual) Moderate 11/19/17 15:23 Macrocytosis (manual) Slight 11/19/17 15:23 pO2 34 mm/Hg (30-55) 11/19/17 15:29 VBG pH 7.29 (7.32-7.43) L 11/19/17 15:29 VBG pCO2 45 mmHg (40-60) 11/19/17 15:29 VBG HCO3 19.9 mmol/L 11/19/17 15:29 VBG Total CO2 23.0 mmol/L (22-28) 11/19/17 15:29 VBG O2 Sat (Calc) 71.0 % (40-65) H 11/19/17 15:29 VBG Base Excess -5.0 mmol/L (0.0-2.0) L 11/19/17 15:29 VBG Potassium 3.0 mmol/L (3.6-5.2) L 11/19/17 15:29 Sodium 135.0 mmol/L (132-148) 11/19/17 15:29 Chloride 103.0 mmol/L (98-107) 11/19/17 15:29 Glucose 213 mg/dL (75-110) H 11/19/17 15:29 Lactate 0.7 mmol/L (0.7-2.1) 11/19/17 15:29 FiO2 21.0 % 11/19/17 15:29 Sodium 139 mmol/l (132-148) 11/19/17 15:23 Potassium 3.3 MMOL/L (3.6-5.0) L 11/19/17 15:23 Chloride 105 mmol/L (98-107) 11/19/17 15:23 Carbon Dioxide 23 mmol/L (22-30) 11/19/17 15:23 Anion Gap 14 (10-20) 11/19/17 15:23 BUN 51 mg/dl (9-20) H 11/19/17 15:23 Creatinine 4.7 mg/dl (0.8-1.5) H 11/19/17 15:23 Est GFR ( Amer) 15 11/19/17 15:23 Est GFR (Non-Af Amer) 13 11/19/17 15:23 POC Glucose (mg/dL) 122 mg/dL (65-110) H 11/20/17:18 Random Glucose 232 mg/dL (75-110) H 11/19/17 15:23 Calcium 8.6 mg/dL (8.4-10.2) 11/19/17 15:23 Total Bilirubin 0.4 mg/dl (0.2-1.3) 11/19/17 15:23 AST 15 U/L (17-59) L 11/19/17 15:23 ALT 18 U/L (21-72) L 11/19/17 15:23 Alkaline Phosphatase 91 U/L (38-126) 11/19/17 15:23 Ammonia 11 umo/L (16-60) L 11/19/17 15:23 Troponin I 0.0360 ng/mL (0.00-0.120) 11/19/17 20:05 Total Protein 7.2 G/DL (6.3-8.2) 11/19/17 15:23 Albumin 4.0 g/dL (3.5-5.0) 11/19/17 15:23 Globulin 3.3 gm/dL (2.2-3.9) 11/19/17 15:23 Albumin/Globulin Ratio 1.2 (1.0-2.1) 11/19/17 15:23 Venous Blood Potassium 3.0 mmol/L (3.6-5.2) L 11/19/17 15:29 Urine Opiates Screen Negative (NEGATIVE) 11/20/17 03:15 Urine Methadone Screen Negative (NEGATIVE) 11/20/17 03:15 Ur Barbiturates Screen Negative (NEGATIVE) 11/20/17 03:15 Ur Phencyclidine Scrn Negative (NEGATIVE) 11/20/17 03:15 Ur Amphetamines Screen Negative (NEGATIVE) 11/20/17 03:15 U Benzodiazepines Scrn Negative (NEGATIVE) 11/20/17 03:15 U Oth Cocaine Metabols Negative (NEGATIVE) 11/20/17 03:15 U Cannabinoids Screen Negative (NEGATIVE) 11/20/17 03:15 Alcohol, Quantitative < 10 mg/dl (0-10) 11/19/17 15:23 - Hospital Course Hospital Course: 61-year-old male with hx of CHF, HTN, CKD (end-stage, refusing dialysis), and DM seen bedside in the ED on 11/19/17. His found him unresponsive at home and he was brought in by ambulance. Blood glucose upon arrival was 20mg/dl and he received 2 Ampsof D50 (50g); no glucose check was done in the field as application packaging consultant thought he was having a seizure. Status-post 2 vials of D5W he was able to be aroused and returned to baseline (baseline as per ED physician who is familiar with the patient). His blood glucose rechecks were 200g/dl and 80g/dl. He admits to being off of his medication for 2 weeks and not consuming any food for the last two days as he was not feeling well. Overnight , there was no episodes of hypoglycemia. This morning, pt is AAO X3 and pt's blood glucose was 122. States he ate his breakfast. Brim Pouncer Dr. Camarena was consulted. Pt was taking amaryl 2 mg po daily and was advised to discontinue it. Undertaker Helper Dr. Holt was also consulted due to his CKD stage V. Pt refused HD for CKD in the past and continues to refuse it today. Pt is aware of ramifications of not have HD. Advised to f/u with his PMD in 2-3 days and f/u with billing representative. Discharge Exam - Head Exam Head Exam: ATRAUMATIC, NORMAL INSPECTION - ENT Exam ENT Exam: Mucous Membranes Moist - Respiratory Exam Respiratory Exam: Clear to PA & Lateral. absent: Rales, Rhonchi, Wheezes - Cardiovascular Exam Cardiovascular Exam: REGULAR RHYTHM, RRR, +S1, +S2 - GI/Abdominal Exam GI & Abdominal Exam: Normal Bowel Sounds, Soft. absent: Tenderness - Neurological Exam Neurological exam: Alert, Oriented x3 - Psychiatric Exam Psychiatric exam: Normal Affect, Normal Mood - Skin Skin Exam: Dry, Normal Color Discharge Plan - Discharge Medications Prescriptions: amLODIPine [Norvasc] 10 mg PO DAILY #30 tab Aspirin [Ecotrin] 81 mg PO DAILY #30 tabec Atorvastatin [Lipitor] 10 mg PO HS #30 tab Carvedilol [Coreg] 25 mg PO Q12 #30 tab Finasteride [Proscar] 5 mg PO DAILY #30 tab Furosemide [Lasix] 20 mg PO DAILY #30 tab Sodium Bicarbonate Tab 1,300 mg PO BID #120 tab Tamsulosin [Flomax] 0.4 mg PO HS #30 cap - Follow Up Plan Condition: FAIR Instructions: Low Blood Sugar, Adult (DC), Chronic Kidney Disease (DC) Additional Instructions: Please follow up with your doctor in 2-3 days. Follow up with billing representative as soon as possible. Referrals: Edwar Holt MD [Staff Provider] - Brien Hargrove MD [Staff Provider] - <Mignon Mazariegos - Last Filed: 11/20/17 15:34> Provider - Provider Date of Admission: 11/19/17 17:12 Attending physician: Dorian Molina MD Hospital Course - Lab Results Lab Results: Most Recent Lab Values WBC 9.4 K/uL (4.8-10.8) 11/19/17 15:23 RBC 3.22 Mil/uL (4.40-5.90) L 11/19/17 15:23 Hgb 10.1 g/dL (12.0-18.0) L 11/19/17 15:23 Hct 29.7 % (35.0-51.0) L 11/19/17 15:23 MCV 92.2 fl (80.0-94.0) 11/19/17 15:23 MCH 31.4 pg (27.0-31.0) H 11/19/17 15:23 MCHC 34.0 g/dL (33.0-37.0) 11/19/17 15:23 RDW 13.5 % (11.5-14.5) 11/19/17 15:23 Plt Count 224 K/uL (130-400) 11/19/17 15:23 MPV 7.7 fl (7.2-11.7) 11/19/17 15:23 Neut % (Auto) 85.7 % (50.0-75.0) H 11/19/17 15:23 Lymph % (Auto) 5.3 % (20.0-40.0) L 11/19/17 15:23 [place] % (Auto) 5.5 % (0.0-10.0) 11/19/17 15:23 Eos % (Auto) 3.0 % (0.0-4.0) 11/19/17 15:23 Baso % (Auto) 0.5 % (0.0-2.0) 11/19/17 15:23 Neut # (Auto) 8.0 K/uL (1.8-7.0) H 11/19/17 15:23 Lymph # (Auto) 0.5 K/uL (1.0-4.3) L 11/19/17 15:23 [place] # (Auto) 0.5 K/uL (0.0-0.8) 11/19/17 15:23 Eos # (Auto) 0.3 K/uL (0.0-0.7) 11/19/17 15:23 Baso # (Auto) 0.0 K/uL (0.0-0.2) 11/19/17 15:23 Neutrophils % (Manual) 81 % (42-75) H 11/19/17 15:23 Band Neutrophils % 2 % (0-2) 11/19/17 15:23 Lymphocytes % (Manual) 8 % (20-50) L 11/19/17 15:23 Monocytes % (Manual) 6 % (0-10) 11/19/17 15:23 Eosinophils % (Manual) 3 % (0-7) 11/19/17 15:23 Hypersegmented Polys Present 11/19/17 15:23 Platelet Estimate Normal (NORMAL) 11/19/17 15:23 Anisocytosis (manual) Moderate 11/19/17 15:23 Macrocytosis (manual) Slight 11/19/17 15:23 pO2 34 mm/Hg (30-55) 11/19/17 15:29 VBG pH 7.29 (7.32-7.43) L 11/19/17 15:29 VBG pCO2 45 mmHg (40-60) 11/19/17 15:29 VBG HCO3 19.9 mmol/L 11/19/17 15:29 VBG Total CO2 23.0 mmol/L (22-28) 11/19/17 15:29 VBG O2 Sat (Calc) 71.0 % (40-65) H 11/19/17 15:29 VBG Base Excess -5.0 mmol/L (0.0-2.0) L 11/19/17 15: VBG Potassium 3.0 mmol/L (3.6-5.2) L 11/19/17 15:29 Sodium 135.0 mmol/L (132-148) 11/19/17 15: Chloride 103.0 mmol/L (98-107) 11/19/17 15:29 Glucose 213 mg/dL (75-110) H 11/19/17 15:29 Lactate 0.7 mmol/L (0.7-2.1) 11/19/17 15:29 FiO2 21.0 % 11/19/17 15:29 Sodium 139 mmol/l (132-148) 11/19/17 15:23 Potassium 3.3 MMOL/L (3.6-5.0) L 11/19/17 15:23 Chloride 105 mmol/L (98-107) 11/19/17 15:23 Carbon Dioxide 23 mmol/L (22-30) 11/19/17 15:23 Anion Gap 14 (10-20) 11/19/17 15:23 BUN 51 mg/dl (9-20) H 11/19/17 15:23 Creatinine 4.7 mg/dl (0.8-1.5) H 11/19/17 15:23 Est GFR ( Amer) 15 11/19/17 15:23 Est GFR (Non-Af Amer) 13 11/19/17 15:23 POC Glucose (mg/dL) 112 mg/dL (65-110) H 11/20/17 11:04 Random Glucose 232 mg/dL (75-110) H 11/19/17 15:23 Calcium 8.6 mg/dL (8.4-10.2) 11/19/17 15:23 Total Bilirubin 0.4 mg/dl (0.2-1.3) 11/19/17 15:23 AST 15 U/L (17-59) L 11/19/17 15:23 ALT 18 U/L (21-72) L 11/19/17 15:23 Alkaline Phosphatase 91 U/L (38-126) 11/19/17 15:23 Ammonia 11 umo/L (16-60) L 11/19/17 15:23 Troponin I 0.0360 ng/mL (0.00-0.120) 11/19/17 20:05 Total Protein 7.2 G/DL (6.3-8.2) 11/19/17 15:23 Albumin 4.0 g/dL (3.5-5.0) 11/19/17 15:23 Globulin 3.3 gm/dL (2.2-3.9) 11/19/17 15:23 Albumin/Globulin Ratio 1.2 (1.0-2.1) 11/19/17 15:23 Venous Blood Potassium 3.0 mmol/L (3.6-5.2) L 11/19/17 15:29 Urine Opiates Screen Negative (NEGATIVE) 11/20/17 03:15 Urine Methadone Screen Negative (NEGATIVE) 11/20/17 03:15 Ur Barbiturates Screen Negative (NEGATIVE) 11/20/17 03:15 Ur Phencyclidine Scrn Negative (NEGATIVE) 11/20/17 03:15 Ur Amphetamines Screen Negative (NEGATIVE) 11/20/17 03:15 U Benzodiazepines Scrn Negative (NEGATIVE) 11/20/17 03:15 U Oth Cocaine Metabols Negative (NEGATIVE) 11/20/17 03:15 U Cannabinoids Screen Negative (NEGATIVE) 11/20/17 03:15 Alcohol, Quantitative < 10 mg/dl (0-10) 11/19/17 15:23 Attending/Attestation - Attestation I have personally seen and examined this patient.: Yes I have fully participated in the care of the patient.: Yes I have reviewed all pertinent clinical information, including history, physical exam and plan: Yes Notes (Text): 11/20/17 15:34 Seen, examined, and discussed with resident. Agree with findings and plan as above.
[2017-11-20 13:12] VITALS: BMI 42.9
[2017-11-20 15:54] VITALS: BP 153/70; PULSE 56; RESP 20; TEMP 98.2
--- NOTE | 2017-11-21 02:21 | PN ---
DATE: 11/20/2017 ENDOCRINOLOGY FOLLOWUP NOTE LOCATION: Room 408, bed 1. SUBJECTIVE: This is a 61-year-old male with recent admission for altered mental status and supervening symptomatic hypoglycemia and since then improved clinically and metabolically in terms of his glycemic profile as noted today. LABORATORY DATA: His chemistry showed a BUN of 51, sodium 139, potassium 3.3, chloride 105, CO2 of 23, glucose 232, and creatinine 4.7. The glucose values today have ranged from 112 to 122 and 135 mg/dL. ASSESSMENT: This is a 61-year-old male with symptomatic hypoglycemia and associated neuroglycopenic and hyperadrenergic manifestations, relieved by D50 bolus injections as noted thereof. He also has diabetic microvascular complications of retinopathy, polyneuropathy and nephropathy with advanced azotemia and end-stage renal disease at this time. PLAN OF MANAGEMENT: As discussed with the staff, the patient has been advised to hold off the reinitiation or the resumption of his oral hypoglycemic therapy on the outpatient. 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 Once again, no indication to resume his oral hypoglycemic therapy to prevent further bouts of recurrent hypoglycemia. We will follow. Kylah Camarena MD
[2017-11-21 17:02] VITALS: O2SAT 100
== END 2017-11-20 17:10 | disposition home or self-care (01) ==
LOC: H.ER 14:35 → INTOOBSV 17:12 → H.ERHOLD 17:12 → H.TEL 20:17
DX: E11.649 Type 2 diabetes mellitus with hypoglycemia without coma (principal); E87.6 Hypokalemia; I13.2 Hypertensive heart and chronic kidney disease with heart failure and with stage 5 chronic kidney disease, or end stage renal disease; E11.22 Type 2 diabetes mellitus with diabetic chronic kidney disease; E66.01 Morbid (severe) obesity due to excess calories; Z68.41 Body mass index [BMI] 40.0-44.9, adult; I50.32 Chronic diastolic (congestive) heart failure; Z86.73 Personal history of transient ischemic attack (TIA), and cerebral infarction without residual deficits; E78.5 Hyperlipidemia, unspecified; E11.319 Type 2 diabetes mellitus with unspecified diabetic retinopathy without macular edema; E11.21 Type 2 diabetes mellitus with diabetic nephropathy; E11.42 Type 2 diabetes mellitus with diabetic polyneuropathy; I48.2 Chronic atrial fibrillation; N18.5 Chronic kidney disease, stage 5
CPT/HCPCS: 70450; 80053; 82140; 82803; 82948; 84100; 84484; 85025; 93005; 96361; 96372; 96374; 99284; G0378; G0480; J1610; J7030; J7042